=== PATIENT | male | born 1945 ===

== ENCOUNTER 2018-06-03 13:05 | Observation (INO) | payer MEDICARE ==
[2018-06-03 13:57] VITALS: BMI 25.1
--- NOTE | 2018-06-03 14:10 | CT ---
Date of service: 06/03/2018 PROCEDURE: CT HEAD WITHOUT CONTRAST. HISTORY: dizzy, h/o R temp/occ CVA 7 mo ago COMPARISON: None available TECHNIQUE: Axial computed tomography images were obtained through the head/brain without intravenous contrast. Radiation dose: Total exam DLP = 1133.32 mGy-cm. This CT exam was performed using one or more of the following dose reduction techniques: Automated exposure control, adjustment of the mA and/or kV according to patient size, and/or use of iterative reconstruction technique. FINDINGS: HEMORRHAGE: No intracranial hemorrhage. BRAIN: Diffuse atrophy with prominence of the ventricles and sulci noted. No mass effect or edema. Intracranial atherosclerosis. Scattered periventricular and subcortical white matter hypodensities, which are nonspecific, but often seen with chronic microvascular ischemic disease. Please note that MRI with diffusion imaging is more sensitive in the detection of acute ischemic event. VENTRICLES: No hydrocephalus. CALVARIUM: Right-sided craniotomy changes. PARANASAL SINUSES: Unremarkable as visualized. No significant inflammatory changes. MASTOID AIR CELLS: Unremarkable as visualized. No inflammatory changes. OTHER FINDINGS: None. IMPRESSION: Nonspecific white matter changes. Generalized atrophy. Right sided craniotomy changes.
[2018-06-03 14:32] LABS: BASO % 0.3 % (0.0-2.0); EOS # 0.1 K/uL (0.0-0.7); EOS % 1.4 % (0.0-4.0); HEMOGLOBIN 13.9 g/dL (12.0-18.0); LYMPH # 1.5 K/uL (1.0-4.3); MEAN CELL VOLUME 84.1 fL (80.0-94.0); MEAN CORPUSCULAR HEMOGLOBIN 27.6 pg (27.0-31.0); MEAN CORPUSCULAR HGB CONC 32.9 g/dL (33.0-37.0); MEAN PLATELET VOLUME 10.4 fL (7.2-11.7); MONO # 0.5 K/uL (0.0-0.8); MONO % 7.7 % (0.0-10.0); NEUT # 4.3 K/uL (1.8-7.0); NEUT % 67.6 % (50.0-75.0); RBC 5.04 Mil/uL (4.40-5.90); RED CELL DISTRIBUTION WIDTH 15.8 % (11.5-14.5); WHITE BLOOD COUNT 6.4 K/uL (4.8-10.8)
--- NOTE | 2018-06-03 14:33 | RAD ---
HISTORY: Code Stroke COMPARISON: None available TECHNIQUE: Chest, one view. FINDINGS: LUNGS: No focal consolidation. Please note that chest x-ray has limited sensitivity for the detection of pulmonary masses. PLEURA: No significant pleural effusion identified. No definite pneumothorax . CARDIOVASCULAR: The cardiomediastinal silhouette appears within normal limits of size. Atherosclerotic calcification present. Ectatic aorta. OSSEOUS STRUCTURES: No acute osseous abnormality identified. VISUALIZED UPPER ABDOMEN: Unremarkable. OTHER FINDINGS: None. IMPRESSION: No focal consolidation.
--- NOTE | 2018-06-03 14:33 | C.PDOC ---
History Of Present Illness 73 year old male presents to ED with complaint of sudden onset of dizziness prior to arrival. He said was walking on [address] and felt dizzy and needed to hold on to wall to keep his balance. Symptoms resolved prior to arrival. Thierry mcqueen has a history of right temporal occipital bleed on September 2016. Patient had a craniotomy at [facility]. Patient denies headache or fall. Time Seen by Provider: 06/03/18 13:14 Chief Complaint (Nursing): Dizziness/Lightheaded History Per: Patient History/Exam Limitations: no limitations Onset/Duration Of Symptoms: Hrs Current Symptoms Are (Timing): Still Present Activity At Onset Of Symptoms: Walking Additional History Per: Patient - Symptoms Of CVA Recent Head Trauma: No Past Medical History Reviewed: Historical Data, Nursing Documentation, Vital Signs Vital Signs: Last Vital Signs Temp 98.4 F 06/03/18 13:31 Pulse 75 06/03/18 13:31 Resp 18 06/03/18 13:31 BP 170/80 H 06/03/18 13:31 Pulse Ox 97 06/03/18 13:31 - Medical History PMH: HTN Other Surgeries: Craniotomy Family History: States: Unknown Family Hx - Social History Hx Alcohol Use: No Hx Substance Use: No - Immunization History Hx Tetanus Toxoid Vaccination: No Hx Influenza Vaccination: Yes Hx Pneumococcal Vaccination: Yes Review Of Systems Constitutional: Negative for: Fever, Chills, Weakness Cardiovascular: Negative for: Chest Pain, Palpitations Respiratory: Negative for: Cough, Shortness of Breath Gastrointestinal: Negative for: Nausea, Vomiting Neurological: Negative for: Weakness, Numbness, Headache, Dizziness Physical Exam - Physical Exam Appears: Well, Non-toxic, No Acute Distress Skin: Normal Color, Warm, Diaphoretic Head: Atraumatic, Normacephalic, Other (old craniotomy scar on the right temporal occipital area) Neck: Normal ROM, Supple Chest: Symmetrical, No Deformity Respiratory: No Accessory Muscle Use Gastrointestinal/Abdominal: Soft, No Tenderness Extremity: Capillary Refill (<2 seconds) Neurological/Psych: Oriented x3, Normal Speech, Normal Cognition ED Course And Treatment - Laboratory Results Result Diagrams: 06/03/18 14:26 06/03/18 14:26 ECG: Interpreted By Me ECG Rhythm: Sinus Rhythm, R BBB Rate From EC O2 Sat by Pulse Oximetry: 97 - Radiology CXR: Interpreted by Me, Viewed By Me CXR Interpretation: Yes: No Acute Disease - CT Scan/US Head CT w/o Other Rad Studies (CT/US): Interpreted By Me, Read By Radiologist CT/US Interpretation: IMPRESSION: Nonspecific white matter changes. Generalized atrophy. Right sided craniotomy changes. Progress Note: Labs ordered with lipid panel and troponin for patient. Head CT w/o contrast, chest portable, and EKG ordered for patient. NaCl IV given to patient. Reevaluation Time: 15:25 Reassessment Condition: Unchanged (remains asymptomatic) - Physician Consult Information Outcome Of Conversation: 1415: attempt x [address] 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 1515: d/w Dr. Sukhdev Duncan, ok to Tele Obs NIHSS Stroke Scale 2 - Date/Time Evaluation Performed Date Performed: 06/03/18 Time Performed: 13:10 When Was NIHSS Performed: Baseline - How Severe is the Stroke Level of Consciousness: 0=Alert LOC to Questions: 0=Both comments correct LOC to commands: 0=Obeys both correctly Best Gaze: 0=Normal Visual: 0=No visual loss Facial: 0=Normal Motor Arm - Left: 0=No drift Motor Arm - Right: 0=No drift Motor Leg - Left: 0=No drift Motor Leg - Right: 0=No drift Limb Ataxia: 0=Absent Sensory: 0=Normal Best Language: 0=No aphasia Dysarthia: 0=Normal articulation Extinction & Inattention (Neglect): 0=Normal, no object Score: 0 rTPA Inclusion/Exclusion - Refusal of Treatment Patient Refused Treatment: No - Inclusion Criteria for Altepase Patient is 18 years or Older: Yes The Clinical Diagnosis of Ischemic Stroke That is Causing a Potentially Disabl ing Neurological Deficit: No Time of Onset is Well Established to be Less Than 270 Minute Before Treatment Would Begin: Yes Risk/Benefit Discussed With Patient/Family Member Present: No - Exclusion Criteria for Altepase Uncontrolled Hypertension at Time of Treatment (Systolic BP above 185 or Diastolic BP above 110 mmHg): No Known Bleeding Diathesis Including but Not Limited to: Platelets Below 100,000/mm,PTT Above 40 sec After Heparin Use, Current Use of Oral Anitcoagulant With INR Greater Than 1.7 or PT Greater Than 15 secs: No Evidence of Major Acute Infarct With Signs Greater Than 1/3 MCA Territory: No - Warning to TPA With Conditions Condition: Stroke Serevity Too Mild Medical Decision Making Medical Decision Making: 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/[address] shows no recurrence, no parenchymal changes to suggest h/o parenchymal bleed tele obs consider neuro consult and MRI in AM Disposition Doctor Will See Patient In The: Hospital Counseled Patient/Family Regarding: Studies Performed, Diagnosis - Disposition Disposition: HOSPITALIZED Disposition Time: 15:15 Condition: GOOD Forms: [facility] (Slovenian) - Clinical Impression Clinical Impression: Dizziness - Scribe Statement The provider has reviewed the documentation as recorded by the Scribe (Caroline Ceballos) All medical record entries made by the Scribe were at my direction and personally dictated by me. I have reviewed the chart and agree that the record accurately reflects my personal performance of the history, physical exam, medical decision making, and the department course for this patient. I have also personally directed, reviewed, and agree with the discharge instructions and disposition.
[2018-06-03 14:47] LABS: INR 1.1; PROTHROMBIN TIME 11.9 SECONDS (9.7-12.2)
[2018-06-03 14:50] LABS: ALB/GLOB RATIO 1.4 (1.0-2.1); ALBUMIN 4.5 g/dL (3.5-5.0); ALT/SGPT 14 U/L (21-72); AST/SGOT 29 U/L (17-59); BLOOD UREA NITROGEN 19 mg/dL (9-20); CALCIUM 9.1 mg/dl (8.6-10.4); GFR NON-AFRICAN AMERICAN > 60; HDL CHOLESTEROL 42 mg/dL (30-70)
[2018-06-03 15:01] LABS: LDL CHOLESTEROL 87 mg/dL (0-129)
[2018-06-03] MEDS ORDERED: Aspirin 325 mg EC Tablets PO STA (15:15)
[2018-06-03] MEDS: Sodium Chloride 0.9% 1,000 ML IV SCH ×2 (15:40→23:49)
[2018-06-03] MEDS ORDERED: Sodium Chloride 0.9% 250 ML IV ONE (15:41)
[2018-06-03] MEDS ORDERED: Aspirin 325 mg EC Tablets PO ONE (15:41)
--- NOTE | 2018-06-03 17:54 | CP.PCM.HP ---
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 Patient said he was walking and felt dizzy and needed to hold onto the wall to balance himself. Patient has a history of right temporo- occipital bleed in September 2016 Present on Admission - Present on Admission Any Indicators Present on Admission: No Past Patient History - Past Social History Smoking Status: Never Smoked - CARDIAC Hx Hypertension: Yes - PSYCHIATRIC Hx Substance Use: No - SURGICAL HISTORY Other/Comment: brain surgey for bleed Meds Home Medications: Home Medication List Medication Instructions Recorded Confirmed Type Aspirin 81 mg PO DAILY 30 Days tab.chew 06/05/18 Rx Clopidogrel [Plavix] 75 mg PO DAILY 30 Days tab 06/05/18 Rx Meclizine [Antivert] 12.5 mg PO TID 30 Days tab 06/05/18 Rx Rosuvastatin Calcium [Crestor] 10 mg PO HS 30 Days tab 06/05/18 Rx Allergies/Adverse Reactions: Allergies Allergy/AdvReac Type Severity Reaction Status Date / Time No Known Allergies Allergy Verified 06/03/18 13:14 Physical Exam - Constitutional Appears: Well - Head Exam Head Exam: ATRAUMATIC, NORMAL INSPECTION, NORMOCEPHALIC - Eye Exam Eye Exam: EOMI, Normal appearance, PERRL Pupil Exam: NORMAL ACCOMODATION, PERRL - ENT Exam ENT Exam: Mucous Membranes Moist, Normal Exam - Neck Exam Neck exam: Positive for: Normal Inspection - Respiratory Exam Respiratory Exam: Decreased Breath Sounds - Cardiovascular Exam Cardiovascular Exam: REGULAR RHYTHM, +S1, +S2 - GI/Abdominal Exam GI & Abdominal Exam: Diminished Bowel Sounds, Soft - Rectal Exam Rectal Exam: Deferred Results - Vital Signs Recent Vital Signs: Last Vital Signs Temp 97.9 F 06/03/18 16:48 Pulse 63 06/03/18 16:48 Resp 18 06/03/18 16:48 BP 145/85 06/03/18 16:48 Pulse Ox 95 06/03/18 16:48 - Labs Result Diagrams: 06/03/18 14:26 06/03/18 14:26 Labs: Laboratory Results - last 24 hr 06/03/18 06/03/18 06/03/18 13:25 14:26 14:26 WBC 6.4 RBC 5.04 Hgb 13.9 Hct 42.4 MCV 84.1 MCH 27.6 MCHC 32.9 L RDW 15.8 H Plt Count 119 L MPV 10.4 Neut % (Auto) 67.6 Lymph % (Auto) 23.0 Fleming % (Auto) 7.7 Eos % (Auto) 1.4 Baso % (Auto) 0.3 Neut # (Auto) 4.3 Lymph # (Auto) 1.5 Fleming # (Auto) 0.5 Eos # (Auto) 0.1 Baso # (Auto) 0.0 Differential Comment PT 11.9 INR 1.1 APTT 37 H Sodium Potassium Chloride Carbon Dioxide Anion Gap BUN Creatinine Est GFR ( Amer) Est GFR (Non-Af Amer) POC Glucose (mg/dL) 123 H Random Glucose Calcium Total Bilirubin AST ALT Alkaline Phosphatase Troponin I Total Protein Albumin Globulin Albumin/Globulin Ratio Triglycerides Cholesterol LDL Cholesterol Direct HDL Cholesterol 06/03/18 14:26 WBC RBC Hgb Hct MCV MCH MCHC RDW Plt Count MPV Neut % (Auto) Lymph % (Auto) Fleming % (Auto) Eos % (Auto) Baso % (Auto) Neut # (Auto) Lymph # (Auto) Fleming # (Auto) Eos # (Auto) Baso # (Auto) Differential Comment PT INR APTT Sodium 141 Potassium 4.1 Chloride 107 Carbon Dioxide 25 Anion Gap 13 BUN 19 Creatinine 0.9 Est GFR ( Amer) > 60 Est GFR (Non-Af Amer) > 60 POC Glucose (mg/dL) Random Glucose 100 Calcium 9.1 Total Bilirubin 0.4 AST 29 ALT 14 L Alkaline Phosphatase 95 Troponin I < 0.0120 Total Protein 7.7 Albumin 4.5 Globulin 3.2 Albumin/Globulin Ratio 1.4 Triglycerides 150 H Cholesterol 133 LDL Cholesterol Direct 87 HDL Cholesterol 42
[2018-06-04 00:59] VITALS: RESP 20
[2018-06-04] MEDS: Sodium Chloride 0.9% 1,000 ML IV SCH ×3 (03:22→19:25)
[2018-06-04] MEDS ORDERED: Enoxaparin 40 mg Syringe SC SCH (10:00)
--- NOTE | 2018-06-04 12:38 | CP.PCM.CON ---
History of Present Illness - History of Present Illness History of Present Illness: Shayne Duncan DO PGY1 - Internal Medicine [employer] - Cardiology Consultation Note for Dr. Mcconnell Patient is a 73M w/ a PMH significant for HTN, HLD, and R temporal/occipital bleed in September of 2016 s/p craniotomy at [place]; Patient presented to [facility] ED on 06/03 w/ c/o dizziness. Cardiolgoy Consulted for Presyncope Upon evaluation patient reports that yesterday he began feeling "dizzy" while ambulating outside; dizziness was reported as lightheadedness which lasted 2-3 min w/ no associated sob, cp, palpitatoins, LOC, or trauma. Resolved after patient grabbed fence and sat down. Bystanders called EMS. At time of presentation, CXR negative, CT Head neagative for acute findings - only generalized atrophy and s/p R craniotomy; EKG at time of evaluation showed a RBBB. Vitals at presentation - patient was hypertensive systolic 170s No complaints offered at bedside this morning. 12 system ROS is negative at this time. 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 Sree Kan - [phone] - CardiaC hx HTN, HLD, Impaired glucose tolerance, Non traumatic subdural hematoma Previous echo 2014: EF normal 65-70; Grade I ventricular diastolic dysfunction, Aneurysmal atrial septum, Aortic valve mildly thickened, Trace AR, MV thickening, Trace-Mild MR, Aortic Root w/ calcification Previously Dx w/ RBBB No Hx of Cardiac Cath Review of Systems - Review of Systems All systems: reviewed and no additional remarkable complaints except Review of Systems: as per HPI Past Patient History - Past Social History Smoking Status: Never Smoked - CARDIAC Hx Hypertension: Yes - PSYCHIATRIC Hx Substance Use: No - SURGICAL HISTORY Other/Comment: brain surgey for bleed Meds Allergies/Adverse Reactions: Allergies Allergy/AdvReac Type Severity Reaction Status Date / Time No Known Allergies Allergy Verified 06/03/18 13:14 - Medications Medications: Current Medications Sodium Chloride (Sodium Chloride 0.9%) 1,000 mls @ 100 mls/hr IV .Q10H COUNTS INCLUDE 234 BEDS AT THE [facility] Last Admin: 06/04/18 09:33 Dose: Not Given Meclizine HCl (Antivert) 12.5 mg PO TID COUNTS INCLUDE 234 BEDS AT THE [facility] Last Admin: 06/04/18 09:33 Dose: 12.5 mg Rosuvastatin Calcium (Crestor) 10 mg PO HS COUNTS INCLUDE 234 BEDS AT THE [facility] Last Admin: 06/03/18 21:10 Dose: 10 mg Physical Exam - Constitutional Appears: Well, Non-toxic, No Acute Distress - Head Exam Head Exam: ATRAUMATIC, NORMOCEPHALIC - Eye Exam Eye Exam: EOMI, Normal appearance, PERRL - ENT Exam ENT Exam: Mucous Membranes Moist, Normal Exam - Respiratory Exam Respiratory Exam: Clear to Auscultation Bilateral, NORMAL BREATHING PATTERN - Cardiovascular Exam Cardiovascular Exam: RRR, +S1, +S2 - GI/Abdominal Exam GI & Abdominal Exam: Soft. absent: Tenderness - Extremities Exam Extremities exam: Positive for: normal inspection, pedal pulses present - Neurological Exam Neurological exam: Alert, Oriented x3 - Psychiatric Exam Psychiatric exam: Normal Affect, Normal Mood - Skin Skin Exam: Dry, Intact, Warm Results - Vital Signs Recent Vital Signs: Last Vital Signs Temp 98.0 F 06/04/18 07:00 Pulse 68 06/04/18 08:00 Resp 20 06/04/18 07:00 BP 135/71 06/04/18 07:00 Pulse Ox 100 06/04/18 07:00 - Labs Result Diagrams: 06/03/18 14:26 06/03/18 14:26 Labs: Laboratory Results - last 24 hr 06/03/18 06/03/18 06/03/18 13:25 14:26 14:26 WBC 6.4 RBC 5.04 Hgb 13.9 Hct 42.4 MCV 84.1 MCH 27.6 MCHC 32.9 L RDW 15.8 H Plt Count 119 L MPV 10.4 Neut % (Auto) 67.6 Lymph % (Auto) 23.0 Morrill % (Auto) 7.7 Eos % (Auto) 1.4 Baso % (Auto) 0.3 Neut # (Auto) 4.3 Lymph # (Auto) 1.5 Morrill # (Auto) 0.5 Eos # (Auto) 0.1 Baso # (Auto) 0.0 Differential Comment PT 11.9 INR 1.1 APTT 37 H Sodium Potassium Chloride Carbon Dioxide Anion Gap BUN Creatinine Est GFR ( Amer) Est GFR (Non-Af Amer) POC Glucose (mg/dL) 123 H Random Glucose Hemoglobin A1c Calcium Total Bilirubin AST ALT Alkaline Phosphatase Troponin I Total Protein Albumin Globulin Albumin/Globulin Ratio Triglycerides Cholesterol LDL Cholesterol Direct HDL Cholesterol 06/03/18 06/03/18 06/04/18 14:26 20:56 06:44 WBC RBC Hgb Hct MCV MCH MCHC RDW Plt Count MPV Neut % (Auto) Lymph % (Auto) Morrill % (Auto) Eos % (Auto) Baso % (Auto) Neut # (Auto) Lymph # (Auto) Morrill # (Auto) Eos # (Auto) Baso # (Auto) Differential Comment PT INR APTT Sodium 141 Potassium 4.1 Chloride 107 Carbon Dioxide 25 Anion Gap 13 BUN 19 Creatinine 0.9 Est GFR ( Amer) > 60 Est GFR (Non-Af Amer) > 60 POC Glucose (mg/dL) 142 H 92 Random Glucose 100 Hemoglobin A1c Calcium 9.1 Total Bilirubin 0.4 AST 29 ALT 14 L Alkaline Phosphatase 95 Troponin I < 0.0120 Total Protein 7.7 Albumin 4.5 Globulin 3.2 Albumin/Globulin Ratio 1.4 Triglycerides 150 H Cholesterol 133 LDL Cholesterol Direct 87 HDL Cholesterol 42 06/04/18 06/04/18 07:58 11:36 WBC RBC Hgb Hct MCV MCH MCHC RDW Plt Count MPV Neut % (Auto) Lymph % (Auto) Morrill % (Auto) Eos % (Auto) Baso % (Auto) Neut # (Auto) Lymph # (Auto) Morrill # (Auto) Eos # (Auto) Baso # (Auto) Differential Comment PT INR APTT Sodium Potassium Chloride Carbon Dioxide Anion Gap BUN Creatinine Est GFR ( Amer) Est GFR (Non-Af Amer) POC Glucose (mg/dL) 84 Random Glucose Hemoglobin A1c 5.8 Calcium Total Bilirubin AST ALT Alkaline Phosphatase Troponin I Total Protein Albumin Globulin Albumin/Globulin Ratio Triglycerides Cholesterol LDL Cholesterol Direct HDL Cholesterol Assessment & Plan (1) Pre-syncope Assessment and Plan: CT Head normal EKG shows previously known changes No arrhythmia observed on telemetry Symptoms resolved this AM Will repeat ECHO today Follow Up orthostatics Status: Acute Priority: High (2) HTN (hypertension) Assessment and Plan: On Norvasc 2.5 Daily at home Normotensive todya C/w norvasc 2.5 QD Status: Chronic - Assessment and Plan (Free Text) Plan: Further reccs per Dr. Mcconnell
--- NOTE | 2018-06-04 17:41 | CARD ---
APPROVED REPORT Date of service: 06/03/2018 EKG Measurement Heart [id number] <Conclusion> Normal sinus rhythm Right bundle branch block Abnormal ECG
--- NOTE | 2018-06-04 18:09 | CARD ---
APPROVED REPORT Date of service: 06/04/2018 EXAM: Two-dimensional and M-mode echocardiogram with Doppler and color Doppler. Other Information Quality : GoodRhythm : INDICATION Syncope 2D DIMENSIONS IVC0.00 cm M-Mode DIMENSIONS RVDd1.02 (2.1-3.2cm)Left Atrium (MM)2.82 (2.5-4.0cm) IVSd0.90 (0.7-1.1cm)Aortic Root3.21 (2.2-3.7cm) LVDd4.77 (4.0-5.6cm)Aortic Cusp Exc.1.92 (1.5-2.0cm) PWd0.76 (0.7-1.1cm)FS (%) 53 % LVDs2.26 (2.0-3.8cm)LVEF (%)84 (>50%) Mitral Valve MV E Ksyomqcd31.1cm/sMV A Chzsjzfk97.1cm/sE/A ratio0.5 TDI Lateral E' Peak V9.93cm/sMedial E' Peak V5.13cm/sE/Lateral E'5.0 E/Medial E'9.8 Tricuspid Valve TR Peak Xmlfkraf055bp/sTR Peak Gr.[id number] <Conclusion> tds. poor window. normal size la,lv & ra rv. normal lv wall motion,thickness & systolic function with lvef of more than 70%, lv diastolic dysfunction grade one. sclerotic trileaflet aortic valve. normal looking mitral,tv & pv. mild tr with normal pulmonary systolic pressures of 26 mm of hg. no pericardial effusion. normal size ivc & sclerotic aortic root. mobile atrial septum but no definite shunt seen. clinical correlation is adv.
--- NOTE | 2018-06-04 19:35 | CP.PCM.PN ---
Subjective - Date & Time of Evaluation Date of Evaluation: 06/04/18 Time of Evaluation: 09:30 - Subjective Subjective: clinically same Objective - Vital Signs/Intake and Output Vital Signs (last 24 hours): Temp Pulse Resp BP Pulse Ox 98.0 F 72 20 135/71 100 06/04/18 07:00 06/04/18 13:44 06/04/18 07:00 06/04/18 07:00 06/04/18 07:00 Intake and Output: 06/04/18 06/05/18 18:59 06:59 Intake Total 1100 Balance 1100 - Medications Medications: Current Medications Amlodipine Besylate (Norvasc) 2.5 mg PO DAILY [facility] Sodium Chloride (Sodium Chloride 0.9%) 1,000 mls @ 100 mls/hr IV .Q10H [facility] Last Admin: 06/04/18 19:25 Dose: 100 mls/hr Meclizine HCl (Antivert) 12.5 mg PO TID [facility] Last Admin: 06/04/18 19:00 Dose: 12.5 mg Rosuvastatin Calcium (Crestor) 10 mg PO HS [facility] Last Admin: 06/03/18 21:10 Dose: 10 mg - Labs Labs: 06/03/18 14:26 06/03/18 14:26 PT 11.9 SECONDS (9.7-12.2) 06/03/18 14:26 INR 1.1 06/03/18 14:26 APTT 37 SECONDS (21-34) H 06/03/18 14:26
[2018-06-05] MEDS: Sodium Chloride 0.9% 1,000 ML IV SCH (05:06)
[2018-06-05 09:14] VITALS: BP 143/80; TEMP 97.7
--- NOTE | 2018-06-05 14:57 | CP.PCM.PN ---
Subjective - Date & Time of Evaluation Date of Evaluation: 06/05/18 Time of Evaluation: 14:56 - Subjective Subjective: PATIENT SEEN AND EXAMINED AT THE BEDSIDE Objective - Vital Signs/Intake and Output Vital Signs (last 24 hours): Temp Pulse Resp BP Pulse Ox 97.7 F 67 20 143/80 100 06/05/18 09:12 06/05/18 09:12 06/05/18 09:12 06/05/18 09:12 06/05/18 09:12 Intake and Output: 06/05/18 06/05/18 06:59 18:59 Intake Total 800 Balance 800 - Medications Medications: Current Medications Amlodipine Besylate (Norvasc) 2.5 mg PO DAILY [facility] Last Admin: 06/05/18 09:39 Dose: 2.5 mg Sodium Chloride (Sodium Chloride 0.9%) 1,000 mls @ 100 mls/hr IV .Q10H [facility] Last Admin: 06/05/18 05:06 Dose: 100 mls/hr Meclizine HCl (Antivert) 12.5 mg PO TID [facility] Last Admin: 06/05/18 14:10 Dose: 12.5 mg Rosuvastatin Calcium (Crestor) 10 mg PO HS [facility] Last Admin: 06/04/18 22:48 Dose: 10 mg - Labs Labs: 06/03/18 14:26 06/03/18 14:26 PT 11.9 SECONDS (9.7-12.2) 06/03/18 14:26 INR 1.1 06/03/18 14:26 APTT 37 SECONDS (21-34) H 06/03/18 14:26 Assessment and Plan - Assessment and Plan (Free Text) Assessment: FOLLOW UP WITH DR Marge RODRIGUEZ IN HIS OFFICE -----CALL FOR APPOINTMENT FOLLOW UP WITH DR RODRIGUEZ OR 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
[2018-06-05 16:17] VITALS: PULSE 72; O2SAT 99
--- NOTE | 2018-06-06 21:15 | VASCLAB ---
Date of service: 06/04/2018 PROCEDURE: Carotid Duplex Exam. HISTORY: Syncope COMPARISON: None available. TECHNIQUE: Grayscale and duplex Doppler evaluation of the cervical carotid and vertebral arteries were performed. The common carotid, carotid bifurcations and cervical Internal Carotid Artery (ICA) and proximal External Carotid Artery (ECA) were evaluated. The vertebral arteries were evaluated for gross patency and flow direction. Report prepared by ZORAIDA Haider FINDINGS: RIGHT CAROTID ARTERIES: 1. Common Carotid Artery: No significant focal plaque formation of the right common carotid artery. Maximum Peak Systolic velocity: 100 cm/sec: End-diastolic velocity 19 cm/sec. 2. Carotid Bifurcation: Minimal heterogeneous plaque formation. Maximum Peak Systolic velocity: 45 cm/sec: End-diastolic velocity 13 cm/sec. 3. Internal Carotid Artery: No significant focal plaque. 3.1. Proximal Segment: Peak systolic velocity 62 cm/sec: End-diastolic velocity 20 cm/sec - % stenosis 0-15% 3.2. Middle Segment: Peak systolic velocity 80 cm/sec: End-diastolic velocity 20 cm/sec - % stenosis 0-15% 3.3. Distal Segment: Peak systolic velocity 58 cm/sec: End-diastolic velocity 18 cm/sec - % stenosis 0-15% 4. External Carotid Artery: No significant focal plaque formation. Peak systolic velocity 98 cm/sec 5. ICA/CCA Ratio: 1.0 LEFT CAROTID ARTERIES: 1. Common Carotid Artery: No significant focal plaque formation of the left common carotid artery. Maximum Peak Systolic velocity: 89 cm/sec: End-diastolic velocity 18 cm/sec. 2. Carotid Bifurcation: Minimal heterogeneous plaque formation. Maximum Peak Systolic velocity: 74 cm/sec: End-diastolic velocity 18 cm/sec. 3. Internal Carotid Artery: No significant focal plaque. 3.1. Proximal Segment: Peak systolic velocity 49 cm/sec: End-diastolic velocity 15 cm/sec - % stenosis 0-15% 3.2. Middle Segment: Peak systolic velocity 95 cm/sec: End-diastolic velocity 34 cm/sec - % stenosis 0-15% 3.3. Distal Segment: Peak systolic velocity 89 cm/sec: End-diastolic velocity 29 cm/sec - % stenosis 0-15% 4. External Carotid Artery: No significant focal plaque formation. Peak systolic velocity 102 cm/sec 5. ICA/CCA Ratio: 1.2 VERTEBRAL ARTERIES: 1. Right Vertebral Artery: The right vertebral artery flow direction is antegrade. 2. Left Vertebral Artery: The left vertebral artery flow direction is antegrade. OTHER FINDINGS: 1. Right Brachial Blood pressure: 160/90 mmHg. 2. Left Brachial Blood pressure: 160/80 mmHg. IMPRESSION: RIGHT: Duplex scan does not suggest hemodynamically significant stenosis of the right extracranial carotid arteries. LEFT: Duplex scan does not suggest hemodynamically significant stenosis of the left extracranial carotid arteries.
== END 2018-06-05 16:40 | disposition home or self-care (01) ==
LOC: C.ER 13:05 → C.9E 15:13 → C.6T 16:05
PROVIDERS: ADMIT Internal Medicine Nephrology; ATTEND Internal Medicine Nephrology
DX: R55 Syncope and collapse (principal); R42 Dizziness and giddiness; I10 Essential (primary) hypertension; E78.5 Hyperlipidemia, unspecified; Z86.73 Personal history of transient ischemic attack (TIA), and cerebral infarction without residual deficits; Z98.890 Other specified postprocedural states
CPT/HCPCS: 36415; 70450; 71045; 80053; 80061; 82948; 83036; 84484; 85025; 85610; 85730; 93005; 93306; 93880; 97161; 99285; G0378; G8978; G8979; G8980; J7030